=== PATIENT | male | born 1985 | race Caucasian/White ===

== ENCOUNTER 2017-04-09 07:10 | Day surgery (SDC) | payer OTHER ==
[2017-04-09] MEDS ORDERED: Sodium Chloride 0.9% 10 ML Syringe FLUSH PRN (07:15)
[2017-04-09] MEDS ORDERED: Lactated Ringers 1,000 ML IV SCH (07:15)
[2017-04-09] MEDS ORDERED: Propofol 200 MG/20 ML SDV IV ONE (09:00)
--- NOTE | 2017-04-09 09:18 | PCM.OPNOTE ---
- General Post-Op/Procedure Note Date of Surgery/Procedure: 04/09/17 Operative Procedure(s): c scope Findings: internal hemorrhoids Pre Op Diagnosis: bleeding per rectum Post-Op Diagnosis: internal hemorrhoids Anesthesia Technique: TIMOTHY Primary Surgeon: Mendoza Abraham Anesthesia Provider: Jorge Cintron Pathology: none Complications: None Condition: Good Free Text/Narrative:: see dictation
[2017-04-09 12:03] VITALS: BP 141/81
--- NOTE | 2017-04-09 17:21 | OR ---
DATE OF OPERATION: 04/09/2017 SURGEON: Mendoza Abraham MD PROCEDURE PERFORMED: Colonoscopy. PREOPERATIVE DIAGNOSIS: Hematochezia. POSTOPERATIVE DIAGNOSIS: Internal hemorrhoids. INDICATIONS FOR PROCEDURE: Mr. Leach is a 32-year-old white male with a family history of colon cancer. He has been having some bright red blood per rectum. He was offered and accepted colonoscopy. DESCRIPTION OF PROCEDURE: After an excellent IV sedation was administered, digital rectal exam was performed. No marked abnormality was noted. The flexible colonoscope was inserted and advanced to the cecum without difficulty. The following findings were noted: Ascending colon, unremarkable. Transverse colon, unremarkable. Descending colon, unremarkable. Sigmoid and rectum unremarkable on retroflexion, the scope there was evidence of internal hemorrhoids which appears to be the cause of his bleeding. Colon was deflated, scope was removed. The patient tolerated the procedure well and was taken to recovery in good condition. /[id number] /[id number]
== END 2017-04-09 10:30 | disposition home or self-care (01) ==
LOC: FB.SDS 07:10
PROVIDERS: ATTEND Surgery
DX: K64.8 Other hemorrhoids (principal); E78.5 Hyperlipidemia, unspecified; Z79.899 Other long term (current) drug therapy; G47.33 Obstructive sleep apnea (adult) (pediatric); F41.9 Anxiety disorder, unspecified; Z98.890 Other specified postprocedural states; Z87.891 Personal history of nicotine dependence
CPT/HCPCS: 45378; J2704; J7120

== ENCOUNTER 2021-12-22 22:33 | Emergency (ER) | payer OTHER ==
[2021-12-22] MEDS ORDERED: Lidocaine 2% 20 ML MDV INFILT ONE (22:34)
[2021-12-23 02:10] VITALS: PULSE 78
[2021-12-23 02:11] VITALS: BP 180/117
== END 2021-12-22 23:35 | disposition home or self-care (01) ==
LOC: FB.ED 22:33
DX: S61.210A Laceration without foreign body of right index finger without damage to nail, initial encounter (principal); E78.00 Pure hypercholesterolemia, unspecified; Z79.899 Other long term (current) drug therapy; W26.0XXA Contact with knife, initial encounter
CPT/HCPCS: 12001; 99282; 99282-25